=== PATIENT | male | born 1955 | race Caucasian/White ===

== ENCOUNTER 2021-12-29 13:57 | Outpatient (CLI) | payer OTHER | END 2021-12-29 14:01 | disposition home or self-care (01) | LOC: RAD 13:57 | PROVIDERS: ATTEND Podiatrist Foot Surgery | DX: M20.11 Hallux valgus (acquired), right foot (principal); M20.12 Hallux valgus (acquired), left foot ==

== ENCOUNTER 2023-01-22 13:38 | Outpatient (CLI) | payer OTHER | END 2023-01-22 13:43 | disposition home or self-care (01) | LOC: RAD 13:38 | PROVIDERS: ATTEND Family Medicine | DX: R29.4 Clicking hip (principal) ==

== ENCOUNTER 2024-01-16 11:37 | Outpatient (CLI) | payer OTHER | END 2024-01-16 11:41 | disposition home or self-care (01) | LOC: RAD 11:37 | DX: M54.2 Cervicalgia (principal) ==